=== PATIENT | male | born 1945 | race Caucasian/White ===

== ENCOUNTER 2021-10-22 08:57 | Outpatient (REF) | payer MEDICARE, SELFPAY | END 2021-10-22 08:58 | disposition home or self-care (01) | LOC: HO.LAB 08:57 | PROVIDERS: Visit Provider Internal Medicine | DX: Z20.822 Contact with and (suspected) exposure to COVID-19 (principal) | CPT/HCPCS: C9803; U0003; U0005 ==

== ENCOUNTER 2022-01-30 08:31 | Outpatient (REF) | payer MEDICARE, SELFPAY ==
--- NOTE | ~2022-01-30 | XR_ITS ---
EXAMINATION: XR KNEE STANDING BILATERAL XR LEFT KNEE 2 VIEWS CLINICAL INFORMATION: Pain in left knee, pain in right knee. COMPARISON: None. TECHNIQUE: Standing AP radiograph of both knees. Lateral and sunrise radiographs of the left knee. FINDINGS: There is severe medial lateral compartmental narrowing and degenerative joint space remodeling on the left with lateral subluxation of the tibia in relation to the femur. There is marginal joint osteophyte formation. On sunrise view, there is osteophyte formation along the articular surface of the patella. There is a moderate joint effusion. There is vascular calcification posterior to the knee. The right knee is visualized only on the standing radiograph and there is severe medial and rufcrxvm-mn-dtmstj narrowing of the lateral compartment with lateral subluxation of the tibia in relation to the femur. XR/XR knee standing BI IMPRESSION: Severe tricompartmental degenerative changes of the left knee with osteophyte formation and moderate joint effusion. Zxieufbk-nt-bfyhln degenerative changes/joint space narrowing of the right knee.
--- NOTE | ~2022-01-30 | XR_ITS ---
EXAMINATION: XR KNEE STANDING BILATERAL XR LEFT KNEE 2 VIEWS CLINICAL INFORMATION: Pain in left knee, pain in right knee. COMPARISON: None. TECHNIQUE: Standing AP radiograph of both knees. Lateral and sunrise radiographs of the left knee. FINDINGS: There is severe medial lateral compartmental narrowing and degenerative joint space remodeling on the left with lateral subluxation of the tibia in relation to the femur. There is marginal joint osteophyte formation. On sunrise view, there is osteophyte formation along the articular surface of the patella. There is a moderate joint effusion. There is vascular calcification posterior to the knee. The right knee is visualized only on the standing radiograph and there is severe medial and rfeavnpi-ay-zxixxy narrowing of the lateral compartment with lateral subluxation of the tibia in relation to the femur. XR/XR knee LT 2V IMPRESSION: Severe tricompartmental degenerative changes of the left knee with osteophyte formation and moderate joint effusion. Fxxdvvun-mb-xcfonu degenerative changes/joint space narrowing of the right knee.
== END 2022-01-30 08:32 | disposition home or self-care (01) ==
LOC: HO.HOSX 08:31
PROVIDERS: Visit Provider Physician Assistant
DX: M25.561 Pain in right knee (principal); M25.562 Pain in left knee; M17.12 Unilateral primary osteoarthritis, left knee; I10 Essential (primary) hypertension; Z79.899 Other long term (current) drug therapy
CPT/HCPCS: 73560; 73565; 99202

== ENCOUNTER → 2022-04-14 09:32 | Outpatient (BNVA) | payer MEDICARE, SELFPAY | PROVIDERS: PCP Internal Medicine; Visit Provider Orthopaedic Surgery | DX: M17.12 Unilateral primary osteoarthritis, left knee (principal) | CPT/HCPCS: 99212 ==

== ENCOUNTER 2022-05-30 07:49 | Outpatient (RCR) | payer MEDICARE, OTHER, SELFPAY ==
--- NOTE | 2022-05-30 08:55 | MHC.PT.EP ---
[facility] [place] [facility] [place] [facility] [place] [facility] [address] Aidee Raymundo [address] [phone] F: [phone] F: [phone] F: [phone] F: [phone] Physical Therapy Plan of Care Date of Evaluation: Date of Surgery: Diagnosis: This is a 76 yo male presenting to skilled PT with a script for prehab for LT TKA on 06/24 Assessment: This is a 76 yo male presenting to skilled PT with a script for prehab for LT TKA on 06/24. Blaine reports left knee OA and ongoing pain for a few years now. He has a history of knee injections which offered some relief, however he stopped these several months ago in preparation for surgery. He will be undergoing TKR on 06/24. He reports that he cannot walk very long without pain (maybe 5 minutes), does not use a cane but admits that he should and has decreased tolerance for doing work around the house. Pain is located anterior, lateral/medial, as well as posterior. Described as achy and sharp. Patient is retired. Likes to mow his lawn. He lives in a 2 story house (but lives on the first with full bath and bedroom). He lives with his who can assist him as needed. He has 4 YOLY with single hand rail. He has a walker and cane. Assessment reveals pain that ranges up to a 5/10. He demos decreased ROM, decreased strength, impaired gait pattern, impaired joint mobility as well as gross functional decline with walking, standing, and functional activities around the house all that is expected prehab prior to TKR. He is a good candidate for skilled PT 2x/wk for 3wks. Frequency and Duration: The patient will be seen 2x/wk for 3wks Short Term Goals: I in HEP Improve knee flexion by 5 degs Demo good understanding of prehab and post surgery exceptions Demo understanding of gait and transfers s/p surgery Manager Of Enterprise Goals: No longitudinal float operator goals due to impending surgery Treatment Plan: Modalities to reduce pain, spasms and effusion. Manual therapy to restore motion and function. Therapeutic exercise to improve strength and flexibility. Neuromuscular re-education for posture and balance. Therapeutic activities to return to functional activities of daily living. Electronically signed by: Monica Funk PT Please sign and return to therapist. Thank you for your referral.
--- NOTE | 2022-07-07 14:39 | MHC.PT.DC ---
[facility] [place] Office [place] Office [place] Office [address] Aidee Raymundo [address] [phone] F: [phone] F: [phone] F: [phone] F: [phone] Physical Therapy Discharge Report Diagnosis: This is a 76 yo male presenting to skilled PT with a script for prehab for LT TKA on 06/24 Date of Surgery: Date of Evaluation: 05/30/22 Date of Discharge: 07/07/22 Treatments to Date: 1 Cancellations to Date: 0 No Shows to Date: 0 Discharge Status: Achieved Goals Independent with HEP Patient Elected to Stop Discharge Summary: This is a 76 yo male presenting to skilled PT with a script for prehab for LT TKA on 06/24. Blaine reports left knee OA and ongoing pain for a few years now. He has a history of knee injections which offered some relief, however he stopped these several months ago in preparation for surgery. He will be undergoing TKR on 06/24. He reports that he cannot walk very long without pain (maybe 5 minutes), does not use a cane but admits that he should and has decreased tolerance for doing work around the house. Pain is located anterior, lateral/medial, as well as posterior. Described as achy and sharp. Patient is retired. Likes to mow his lawn. He lives in a 2 story house (but lives on the first with full bath and bedroom). He lives with his who can assist him as needed. He has 4 YOLY with single hand rail. He has a walker and cane. Assessment reveals pain that ranges up to a 5/10. He demos decreased ROM, decreased strength, impaired gait pattern, impaired joint mobility as well as gross functional decline with walking, standing, and functional activities around the house all that is expected prehab prior to TKR. He is a good candidate for skilled PT 2x/wk for 3wks. Patient has choosen to do HEP on own until surgery Electronically signed by: Monica Funk, PT Please sign and return to therapist. Thank you for your referral.
== END 2022-07-07 14:40 | disposition home or self-care (01) ==
LOC: HO.PTCHIC 07:49
PROVIDERS: PCP Internal Medicine; Visit Provider Orthopaedic Surgery
DX: M17.12 Unilateral primary osteoarthritis, left knee (principal)
CPT/HCPCS: 97110; 97162; 97530

== ENCOUNTER → 2022-06-19 10:58 | Outpatient (BNVA) | payer MEDICARE, OTHER, SELFPAY | PROVIDERS: PCP Internal Medicine; Visit Provider Physician Assistant | DX: M17.12 Unilateral primary osteoarthritis, left knee (principal) | CPT/HCPCS: 99212 ==

== ENCOUNTER 2022-06-25 06:46 | Inpatient (IN) | payer MEDICARE, SELFPAY ==
[2022-06-18 12:10] VITALS: BP 107/58; PULSE 67; RESP 20; O2SAT 98; BMI 34.2
[2022-06-18 15:36] LABS: MRSA Nasal PCR NEGATIVE (Negative); SA Nasal PCR NEGATIVE (Negative)
--- NOTE | 2022-06-23 08:43 | HO.ANESPROP2 ---
Documented by User: Valentine Mckeon NP 06/23/22 09:06 HPI - Anesthesia Eval Consult details Narrative: 76yo M for Left Knee Replacement Total PCP cleared Cardiac cleared PMFSH Active Problems Active Problems: All Active Problems (Updated 06/18/22 @ 12:24 by Linda Anand RN) Osteoarthritis of left knee (Acute) Past Medical History Medical History Arrhythmia Arthritis COVID-19 vaccine series completed Elevated cholesterol Glaucoma Hypertension Skin cancer Surgical History Surgical History H/O colonoscopy Social History Social History Are you a primary vp care management to a significant other at home: No Do you presently have visiting nurse or other home services: No Patient Tobacco Use Status: Never used Tobacco Use of substances other than those prescribed or required for medical reasons: No Currently Displaying Signs/Symptoms of Drug Intoxication Withdrawal: No Have you been hit, kicked, punched, or otherwise hurt by someone within the past year? If so, by whom?: No Are you DNR?: Yes Advance Directives Information Provided: Yes (as above noted) Advance Directives on File: No Recently lost weight without trying: No Eating poorly because of decreased appetite: No Nutrition Risks: Surgical patient >75years Poor oral hygiene: No (adentulous) Current occupational status: retired Meds Allergies Allergy/AdvReac Type Severity Reaction Status Date / Time No Known Allergies Allergy Verified 06/25/22 06:59 Home Medications Medication Instructions Recorded Confirmed Last Taken Type diosmin complex no.1 630 mg tablet 1 tab PO DAILY 01/30/22 06/17/22 Unknown History (Vasculera) emollient combination no.32 1 appl topical DAILY 01/30/22 06/17/22 Unknown History (EpiCeram topical emulsion, extended release) hydrochlorothiazide 25 mg tablet 25 mg PO DAILY 01/30/22 06/17/22 Unknown History lisinopril 10 mg tablet 10 mg PO DAILY 01/30/22 06/17/22 Unknown History triamcinolone acetonide 0.1 % 1 appl topical BID-TID 01/30/22 06/18/22 Unknown History topical cream metoprolol tartrate 25 mg tablet 12.5 mg PO BID 04/14/22 06/17/22 06/25/22 05:00 History acetaminophen 325 mg tablet 650 mg PO Q4H PRN Pain 06/17/22 06/17/22 Unknown History atorvastatin 40 mg tablet 40 mg PO BEDTIME 06/17/22 06/17/22 Unknown History multivitamin 1 tab PO DAILY 06/17/22 06/17/22 Unknown History dorzolamide 2 % eye drops 1 drp ophthalmic (eye) BID 06/25/22 06/25/22 06/25/22 05:00 History latanoprost 0.005 % eye drops 1 drp ophthalmic (eye) BEDTIME 06/25/22 06/25/22 Unknown History Exam Exam Date and Time: June 23, 2022 0843 Height,Weight and Vital Signs: Height 5 ft 9 in Weight 105.233 kg Last Vital Signs Pulse 67 06/18/22 12:10 Resp 20 06/18/22 12:10 BP 107/58 L 06/18/22 12:10 Pulse Ox 98 06/18/22 12:10 O2 Del Method 06/18/22 12:10 Pertinent Lab Results Pertinent Lab Results: Laboratory Tests 06/18/22 06/18/22 12:30 13:10 Nasal Screen MRSA (PCR) NEGATIVE Nasal S. aureus Screen NEGATIVE Nasal MRSA/S.aureus Interp SEE NOTE Blood Type O Negative Antibody Screen NEGATIVE Labs from outside facility: CBC wnl, BMP wnl Narrative Narrative: EKG 05/2022 ST @ 109 Borderline low volt ECHO 03/2022 1. Nml LV size and systolic function. Nml regional wall motion. Asymmetric septal hypertrophy. Nml LV diastolic function. LVEF 55-60% 2. No signif valve abn Assessment and Plan Assessment Anesthesia Assessment: Chart Reviewed Documented by User: Dann Soriano MD 06/25/22 15:42 [facility] Past Medical History Medical History Arrhythmia Arthritis COVID-19 vaccine series completed Elevated cholesterol Glaucoma Hypertension Skin cancer Family History Family history of problems with anesthesia: No Surgical History Surgical History H/O colonoscopy History of Problems with Anesthesia: No Social History Social History Are you a primary vp care management to a significant other at home: No Do you presently have visiting nurse or other home services: No Patient Tobacco Use Status: Never used Tobacco Use of substances other than those prescribed or required for medical reasons: No Currently Displaying Signs/Symptoms of Drug Intoxication Withdrawal: No Have you been hit, kicked, punched, or otherwise hurt by someone within the past year? If so, by whom?: No Are you DNR?: Yes Advance Directives Information Provided: Yes (as above noted) Advance Directives on File: No Recently lost weight without trying: No Eating poorly because of decreased appetite: No Nutrition Risks: Surgical patient >75years Poor oral hygiene: No (adentulous) Current occupational status: retired [employer] Allergies Allergy/AdvReac Type Severity Reaction Status Date / Time No Known Allergies Allergy Verified 06/25/22 06:59 Home Medications Medication Instructions Recorded Confirmed Last Taken Type diosmin complex no.1 630 mg tablet 1 tab PO DAILY 01/30/22 06/17/22 Unknown History (Vasculera) emollient combination no.32 1 appl topical DAILY 01/30/22 06/17/22 Unknown History (EpiCeram topical emulsion, extended release) hydrochlorothiazide 25 mg tablet 25 mg PO DAILY 01/30/22 06/17/22 Unknown History lisinopril 10 mg tablet 10 mg PO DAILY 01/30/22 06/17/22 Unknown History triamcinolone acetonide 0.1 % 1 appl topical BID-TID 01/30/22 06/18/22 Unknown History topical cream metoprolol tartrate 25 mg tablet 12.5 mg PO BID 04/14/22 06/17/22 06/25/22 05:00 History acetaminophen 325 mg tablet 650 mg PO Q4H PRN Pain 06/17/22 06/17/22 Unknown History atorvastatin 40 mg tablet 40 mg PO BEDTIME 06/17/22 06/17/22 Unknown History multivitamin 1 tab PO DAILY 06/17/22 06/17/22 Unknown History dorzolamide 2 % eye drops 1 drp ophthalmic (eye) BID 06/25/22 06/25/22 06/25/22 05:00 History latanoprost 0.005 % eye drops 1 drp ophthalmic (eye) BEDTIME 06/25/22 06/25/22 Unknown History Exam Airway Mallampati Class: III TM Dist: >3cm Neck ROM: Full Loose/Missing/Broken Teeth: Yes Heart: S1,S2 Lungs: b/l breath sounds Assessment and Plan Assessment Anesthesia Assessment: Anesthesia Plan Discussed Final Anesthetic Review Family History of Problems with Anesthesia: No History of Problems with Anesthesia: No NPO: Yes ASA Class: III Final Preanesthetic Review: Meds/Allgs Chart Reviewed, Consent Obtained/Reviewed and Anes Risks/Benef Reviewed Patient Risk: Intermediate Procedure Risk: Intermediate Anesthetic Plan Anesthetic Plan: Spinal and Regional Block Disposition: Standard PACU
[2022-06-25] VITALS (12 sets, daily range): BP systolic 101–144; BP diastolic 57–72; PULSE 55–97; RESP 12–20; TEMP 36.1–37; O2SAT 92–100
--- NOTE | ~2022-06-25 | XR_ITS ---
EXAMINATION: XR KNEE, LEFT CLINICAL INFORMATION: Status post left total knee arthroplasty COMPARISON: January 30, 2022 TECHNIQUE: AP and lateral views of the left knee. FINDINGS: Patient status post left total knee arthroplasty with prosthetic components appearing in good position. No acute fracture or dislocation is evident. Some gas within the soft tissues from recent surgery noted. There appears to be a left knee effusion. Staple line is present. XR/XR knee LT 2V IMPRESSION: Satisfactory postoperative appearance of left total knee arthroplasty.
[2022-06-25 07:09] LABS: Hematocrit 43.3 % (42.0-52.0); Hemoglobin 14.6 g/dl (14.0-18.0)
--- NOTE | 2022-06-25 07:38 | MHC.SHP ---
Pre-Procedural Eval Section A Date of Service: 06/25/22 The patient is an INPATIENT: No Changes since office visit: Yes Patient answered all questions; No Cold of Flu in the past 2 weeks, No New Medical Problems and No Changes in Medication The History & Physical has been completed within 30 days and I have reviewed it.: Yes Section B Chief Complaint: LT TKA Allergies: Allergies Allergy/AdvReac Type Severity Reaction Status Date / Time No Known Allergies Allergy Verified 06/25/22 06:59 Plan I have reviewed the history and physical and performed a pertinent physical examination on my patient. No changes have occurred unless specified.
[2022-06-25 07:42] LABS: COVID-19 Test Negative (Negative)
--- NOTE | 2022-06-25 07:47 | PHA.MEDREC ---
Pharmacy Consult ? Medication Reconciliation RN has completed the medication reconciliation. Pharmacy reviewed
[2022-06-25] MEDS: Lactated Ringers 1,000 ML 100 ML IVCONT ×3 (08:00→23:25)
--- NOTE | 2022-06-25 10:34 | PM.OP ---
Brief Operative Note Date of Service: 06/25/22 Pre-op diagnosis: left knee OA Post-op diagnosis: same Procedure: Left TKA Implants: [employer] Triathalon Posterior stabilized cemented 03/28/38 Surgeon: Moy Gandhi MD Anesthesia: GETA and regional Was an Wind Operations Manager used for this Procedure?: Yes Wind Operations Manager: Oriana Mo Estimated blood loss (mL): 200 IV fluids (mL): 1,000 Pathology: other Condition: stable Disposition: PACU
--- NOTE | 2022-06-25 10:41 | P.OP_ITS ---
Operative Note Operative Note Date of Service: 06/25/22 Narrative: Date of Service: 06/25/22 Pre-op diagnosis: left knee OA Post-op diagnosis: same Procedure: Left TKA Implants: [employer] Triathalon Posterior stabilized cemented 03/28/a/11TS Surgeon: Moy Gandhi MD Anesthesia: GETA and regional Was an Middle School Technology Teacher used for this Procedure?: Yes Middle School Technology Teacher: Oriana Mo Estimated blood loss (mL): 200 IV fluids (mL): 1,000 Pathology: other Condition: stable Disposition: PACU Procedure in detail: The patient was brought to the operating room and prepped and draped in standard sterile fashion. A time-out was called to identify proper site proper procedure proper surgeon and IV antibiotics were administered. 1 g of IV tranexamic acid was administered. I began by making a midline incision to the retinaculum and performed a medial parapatellar arthrotomy. The patella was translated laterally and the knee was flexed up. This was a valgus knee with severe medial tibial plateau bone loss and tric-comparmetnal deformity. There was a 10deg flexion contracture. I performed a small medial peel and resected the infrapatellar fat pad. Myrtle's line was then used to drill my intramedullary femoral guide and my distal femur cut of 12 mm was made in 5 degrees of valgus while protecting the soft tissues. I then measured a # 5 femur and placed my cutting guide and made my anterior posterior and chamfer cuts protecting the soft tissues at all times. I then made my box but removing the PCL. Once I was satisfied with my cuts I turned my attention to the tibia. I removed the meniscus medially and laterally and , using an external cutting guide, in line with the tibial crest and the third ray, I made my distal tibial cut in 0 deg slope of while protecting the PCL the posterior soft tissues at all times. An extension block was used to confirm appropriate amount of bony resection. I then sized a #6 tibia and once I was satisfied that there was complete tibial coverage I placed my trial and with the trial femur in place took the knee through range of motion. I was satisfied with the extension and flexion as well as the stability at 0, 30 and 90 degrees. I then turned my attention to the patella where I removed 1 cm from the undersurface of the patella and then trialed a 38a patellar button. Again the knee was taken through range of motion I was satisfied with the tracking. A femoral bone plug was placed and the knee was irrigated copiously. I thencemented the patella, tibia and femur in standard fashion while applying axial compression. I trialed different inserts until I selected a #11TS insert. The final insert was placed and a 3 minutes iodine soak with local TXA was performed. The knee was then closed with a running Quill suture, a 3 0 Vicryl and renetta on the skin. Patient was then placed in sterile dressing and brought to recovery room in stable condition there were no known complications.
[2022-06-25] MEDS: oxyCODONE HCl Immed Release 5 MG TABLET PO (13:29)
[2022-06-25] MEDS: HYDROmorphone HCl 0.5 MG/0.5 ML SYRINGE 0.25 MG IVPUSH (13:48)
[2022-06-25] MEDS: Acetaminophen 325 MG TABLET 650 MG PO ×2 (13:53→20:43)
[2022-06-25] MEDS: ceFAZolin Sodium/Dextrose,Iso 2 GM/50 ML PIGGYBACK IV (15:07)
[2022-06-25] MEDS: HYDROmorphone HCl 0.5 MG/0.5 ML SYRINGE IVPUSH (16:49)
[2022-06-25] MEDS: oxyCODONE HCl ER 10 MG TAB.ER.12H PO (20:40)
[2022-06-25] MEDS: Docusate Sodium 100 MG CAPSULE PO (20:41)
[2022-06-25] MEDS: Metoprolol Tartrate 12.5 MG HALFTAB PO (20:41)
[2022-06-25] MEDS: Celecoxib 200 MG CAPSULE PO (20:41)
[2022-06-25] MEDS: Atorvastatin Calcium 40 MG TABLET PO (20:41)
[2022-06-25] MEDS: oxyCODONE HCl Immed Release 5 MG TABLET 10 MG PO (20:44)
[2022-06-25] MEDS: Dorzolamide HCl 2 % Ophth Sol 10 ML DRPBTL 1 DROP EYE-BOTH (20:46)
[2022-06-25] MEDS: Latanoprost 0.005 % Ophth Sol 2.5 ML DROPS 1 DROP EYE-BOTH (20:46)
[2022-06-26] VITALS (8 sets, daily range): BP systolic 87–116; BP diastolic 50–60; PULSE 72–121; RESP 16–18; TEMP 36.2–37.2; O2SAT 91–97
[2022-06-26] MEDS: oxyCODONE HCl Immed Release 5 MG TABLET 10 MG PO ×3 (03:32→20:30)
[2022-06-26 05:56] LABS: MANUAL DIFF FLAG NO
[2022-06-26 06:00] LABS: Basophils Percent Auto 0.3 % (0-2); Eosinophils Absolute Auto 0.1 X10*3/uL (0.0-0.4); Eosinophils Percent Auto 0.7 % (0-4); Hematocrit 35.2 % (42.0-52.0); Hemoglobin 11.9 g/dl (14.0-18.0); Imm Gran Abs Auto 0.07 X10*3/uL (0.00-0.03); Imm Gran Pct Auto 0.6 % (0.0-0.4); Lymphocytes Absolute Auto 1.3 X10*3/uL (1.2-4.9); Lymphocytes Percent Auto 11.1 % (20-40); Mean Corpuscular HGB Conc 33.8 g/dl (31.0-36.0); Mean Corpuscular Hemoglobin 29.5 pg (27.0-33.0); Mean Corpuscular Volume 87.1 fL (80.0-98.0); Mean Platelet Volume 10.1 fL (9.4-12.4); Monocytes Absolute Auto 1.3 X10*3/uL (0.1-1.2); Monocytes Percent Auto 11.7 % (2-11); Neutrophils Absolute Auto 8.6 x10*3/uL (2.0-8.3); Neutrophils Percent Auto 75.6 % (45-73); Platelet Count 194 X10*3/uL (160-400); Red Blood Count 4.04 X10*6/uL (4.60-5.80); Red Cell Distribution Width 13.7 % (11.0-16.0); White Blood Count 11.3 X10*3/uL (4.8-10.8)
[2022-06-26 06:25] LABS: Anion Gap 10 (12-20); Blood Urea Nitrogen 15 mg/dL (9-16); Calcium 8.4 mg/dL (8.4-10.2); Carbon Dioxide 27 mmol/L (22-29); Chloride 105 mmol/L (96-108); Estimated Glomerular Filt Rate > 60; Glucose Fasting 127 mg/dL (60-99); Potassium 4.3 mmol/L (3.3-5.1); Sodium 138 mmol/L (135-145)
--- NOTE | 2022-06-26 06:52 | HO.POSTANES ---
Post Anesthesia Evaluation Post Anesthesia Evaluation Vital Signs: Vital Signs Temp Pulse Resp BP Pulse Ox O2 Del Method 06/26/22 03:25 97.3 F 85 17 109/60 91 L Room Air 06/25/22 23:26 98.6 F 97 16 101/65 94 Room Air 06/25/22 19:13 98.5 F 93 18 135/68 100 Room Air Anesthesia: Spinal and Nerve Block Mental Status: Awake Pain Control: Satisfactory (difficulty controlling pain) Nausea/Vomiting: None Hydration: Adequate Anesthesia-Related Issues: No Anes. Related Issues
[2022-06-26] MEDS: Metoprolol Tartrate 12.5 MG HALFTAB PO (07:49)
[2022-06-26] MEDS: Aspirin 325 MG TABLET PO ×2 (07:49→20:29)
[2022-06-26] MEDS: hydroCHLOROthiazide 25 MG TABLET PO (07:49)
[2022-06-26] MEDS: Celecoxib 200 MG CAPSULE PO ×2 (07:49→20:29)
[2022-06-26] MEDS: lisinopriL 10 MG TABLET PO (07:50)
[2022-06-26] MEDS: oxyCODONE HCl ER 10 MG TAB.ER.12H PO ×2 (07:50→20:30)
[2022-06-26] MEDS: Multivitamin TABLET 1 TAB PO (07:50)
[2022-06-26] MEDS: Docusate Sodium 100 MG CAPSULE PO ×2 (07:51→20:29)
[2022-06-26] MEDS: Dorzolamide HCl 2 % Ophth Sol 10 ML DRPBTL 1 DROP EYE-BOTH ×2 (07:52→20:31)
--- NOTE | 2022-06-26 08:47 | MHC.CM.PN ---
IMM addressed, original given to patient and copy filed in chart. Patient reports he lives with Kay, his significant other. She will transport him home. He has a cane, walker, and toilet riser at home; does not receive any home services. [facility] is a and [facility] [place], [facility] (MD Yanira). He is also connected to [facility] services. Community PCP is Harriett Garcia. He is Covid vax'd x3 (MRNA), and HCP on file. D/C Plan: Home with new VNA per PT recommendation
--- NOTE | 2022-06-26 08:52 | PM.PNORT ---
Subjective Subjective Date of Service: 06/26/22 Interval history: POD1 s/p LTKA. Pain overnight. Meds were adjusted. No additional overnight events. No additional complaints. Physical Exam Vital Signs: Vital Signs: Last Vital Signs Temp 97.2 F 06/26/22 07:28 Pulse 92 06/26/22 07:28 Resp 18 06/26/22 07:28 BP 105/50 L 06/26/22 07:28 Pulse Ox 97 06/26/22 07:28 O2 Del Method 06/26/22 07:28 O2 Flow Rate 6 06/25/22 10:39 BMI result Body Mass Index 34.2 Const: General: cooperative, healthy appearing and no acute distress Resp: Effort & Inspection: normal respiratory effort and able to speak in complete sentences Cardio: Rate: regular rate Peripheral pulses: Peripheral pulses 2+ throughout GI: Palpation (GI): Soft to palpation Skin: Lesions: no lesions Rashes: no rashes Extrem: Other: Left knee Aquacel is clean. dry and intact. NVI. Procedures Date of Service Date of Service: 06/26/22 Progress Note: A&P Assessment and plan (1) Status post total knee replacement, left: Status: Acute Assessment and Plan: Continue pain mgmnt Begin ASA for dvt ppx begin PT for LTKA Dispo planning-Pending PT eval, pain mgmnt Time Spent With Patient Time: Total time spent is greater than 50% in coordination of care (as documented) at patient's floor/unit and/or counseling patient: Quality Stroke Does the patient have a stroke diagnosis?: No VTE Prior VTE?: No VTE Risk Level:: Medical - moderate - high VTE Device Contraindication: N/A - Device Ordered VTE Drug Contraindication: N/A - Med Ordered
[2022-06-26] MEDS: 0.9 % Sodium Chloride 1,000 ML 999 ML IV (11:52)
--- NOTE | 2022-06-26 11:59 | P.CONIM_ITS ---
History of Present Illness Data of Consult Service Date: 06/26/22 Primary Care Provider: Harriett Garcia MD [facility] Reason for consult: htn 76M admitted for elective left total knee arthroplasty. patient has history of HTN on lisinopirl, hctz, metoprolol. and hld on lipitor. postoperatively, feeling well, was hyotnesive to 87/50, but asymptomatic. denies chest pain, dizzyness, sob, fever, chills. Review of Systems Review of Systems: Constitutional: Denies fever, denies Chills Eyes: denies blurry vision ENT: denies sore throat CVS: denies chest pain Respiratory: Denies dyspnea GI: no abdominal pain : denies dysuria MSK: denies neck pain Skin: denies rash Neuro: denies specific motor weakness Psych: denies suicidal ideation Endocrine: denies heat/cold intolerance Hematologic: denies easy bleeding Allergy: denies hives [facility] Medical History Arrhythmia Arthritis COVID-19 vaccine series completed Elevated cholesterol Glaucoma Hypertension Skin cancer Family History (Updated 06/26/22 @ 11:59 by Bryson Serna MD) Mother CAD (coronary artery disease) Surgical History (Updated 06/26/22 @ 08:54 by Oriana Mo PA-C) H/O colonoscopy Social History Are you a primary director of medicare to a significant other at home: No Do you presently have visiting nurse or other home services: No Patient Tobacco Use Status: Never used Tobacco service: Yes Current occupational status: retired [employer] Allergies Allergy/AdvReac Type Severity Reaction Status Date / Time No Known Allergies Allergy Verified 06/25/22 06:59 Active Medications: Current Medications Acetaminophen (Acetaminophen 325 Mg Tablet) 650 mg PO Q6H PRN PRN Reason: Pain, Mild (Pain Scale 1-3) Last Admin: 06/25/22 20:43 Dose: 650 mg Aspirin (Aspirin 325 Mg Tablet) 325 mg PO BID [facility] Last Admin: 06/26/22 07:49 Dose: 325 mg Atorvastatin Calcium (Atorvastatin Calcium 40 Mg Tablet) 40 mg PO BEDTIME JAKOB Last Admin: 06/25/22 20:41 Dose: 40 mg Celecoxib (Celecoxib 200 Mg Capsule) 200 mg PO BID [facility] Last Admin: 06/26/22 07:49 Dose: 200 mg Docusate Sodium (Docusate Sodium 100 Mg Capsule) 100 mg PO BID [facility] Last Admin: 06/26/22 07:51 Dose: 100 mg Dorzolamide HCl (Dorzolamide Hcl 2 % Ophth Bindu 10 Ml Drpbtl) 1 drop EYE-BOTH BID [facility] Last Admin: 06/26/22 07:52 Dose: 1 drop Hydrochlorothiazide (Hydrochlorothiazide 25 Mg Tablet) 25 mg PO DAILY [facility]; Protocol Last Admin: 06/26/22 07:49 Dose: 25 mg Hydromorphone HCl (Hydromorphone Hcl 0.5 Mg/0.5 Ml Syringe) 0.5 mg IVPUSH Q3H PRN; Protocol PRN Reason: Pain, Severe (Pain Scale 7-10) Last Admin: 06/25/22 16:49 Dose: 0.5 mg Sodium Chloride (Ns) 1,000 mls @ 999 mls/hr IV .Q1H1M [facility] Stop: 06/26/22 12:45 Last Admin: 06/26/22 11:52 Dose: 999 mls/hr Latanoprost (Latanoprost 0.005 % Ophth Bindu 2.5 Ml Drops) 1 drop EYE-BOTH BEDTI ME [facility] Last Admin: 06/25/22 20:46 Dose: 1 drop Lisinopril (Lisinopril 10 Mg Tablet) 10 mg PO DAILY [facility]; Protocol Last Admin: 06/26/22 07:50 Dose: 10 mg Metoprolol Tartrate (Metoprolol Tartrate 12.5 Mg Halftab) 12.5 mg PO BID [facility]; Protocol Last Admin: 06/26/22 07:49 Dose: 12.5 mg Multi-Ingred Cream/Lotion/Oil/Oint (Mineral Oil/Petrolatum,White 106 Gm Tube) 1 appl TOPICAL DAILY [facility] Last Admin: 06/26/22 07:57 Dose: Not Given Multivitamins/Vitamin C (Multivitamin Tablet) 1 tab PO DAILY [facility] Last Admin: 06/26/22 07:50 Dose: 1 tab Oxycodone HCl (Oxycodone Hcl Er 10 Mg Tab.Er.12h) 10 mg PO BID [facility] Last Admin: 06/26/22 07:50 Dose: 10 mg Oxycodone HCl (Oxycodone Hcl Immed Release 5 Mg Tablet) 10 mg PO Q4H PRN PRN Reason: Pain, Moderate (Pain Scale 4-6 Last Admin: 06/26/22 07:51 Dose: 10 mg Sodium Chloride (0.9 % Sodium Chloride Flush 3 Ml Syringe) [address] [facility] Last Admin: 06/26/22 07:55 Dose: Not Given Triamcinolone Acetonide (Triamcinolone Acet 0.1 % Cream 15 Gm Tube) 1 appl TOPICAL TID [facility]; Protocol Last Admin: 06/26/22 11:35 Dose: Not Given Home Medications Medication Instructions Recorded Confirmed Last Taken Type diosmin complex no.1 630 mg tablet 1 tab PO DAILY 01/30/22 06/17/22 Unknown His tory (Vasculera) emollient combination no.32 1 appl topical DAILY 01/30/22 06/17/22 Unknown History (EpiCeram topical emulsion, extended release) hydrochlorothiazide 25 mg tablet 25 mg PO DAILY 01/30/22 06/17/22 Unknown History lisinopril 10 mg tablet 10 mg PO DAILY 01/30/22 06/17/22 Unknown History triamcinolone acetonide 0.1 % 1 appl topical BID-TID 01/30/22 06/18/22 Unknown History topical cream metoprolol tartrate 25 mg tablet 12.5 mg PO BID 04/14/22 06/17/22 06/25/22 05:00 History acetaminophen 325 mg tablet 650 mg PO Q4H PRN Pain 06/17/22 06/17/22 Unknown History atorvastatin 40 mg tablet 40 mg PO BEDTIME 06/17/22 06/17/22 Unknown History multivitamin 1 tab PO DAILY 06/17/22 06/17/22 Unknown History dorzolamide 2 % eye drops 1 drp ophthalmic (eye) BID 06/25/22 06/25/22 06/25/22 05:00 History latanoprost 0.005 % eye drops 1 drp ophthalmic (eye) BEDTIME 06/25/22 06/25/22 Unknown History Physical Exam Vital Signs and Narrative: Vital Signs: Last Vital Signs Temp 98.7 F 06/26/22 11:18 Pulse 85 06/26/22 11:18 Resp 16 06/26/22 11:18 BP 87/50 L 06/26/22 11:18 Pulse Ox 96 06/26/22 11:18 O2 Del Method 06/26/22 11:18 O2 Flow Rate 6 06/25/22 10:39 BMI result Body Mass Index 34.2 General: no acute distress HEENT: atraumatic Neck: normal to visual inspection CVS: S1, S2, RRR Resp: CTA bilateral Chest: non tender GI: soft, non tender, non distended : no CVA tenderness Skin: no rashes Extremities: no edema Neuro: Oriented X3, grossly intact Psych: cooperative Results Labs CBC and Chem 7: 06/26/22 05:24 06/26/22 05:24 Labs: Laboratory Results - last 24 hr 06/26/22 06/26/22 05:24 05:24 MCV 87.1 MCH 29.5 MCHC 33.8 RDW 13.7 Plt Count 194 MPV 10.1 Immature Gran % (Auto) 0.6 H Neut % (Auto) 75.6 H Lymph % (Auto) 11.1 L [place] % (Auto) 11.7 H Eos % (Auto) 0.7 Baso % (Auto) 0.3 Lymph # (Auto) 1.3 [place] # (Auto) 1.3 H Eos # (Auto) 0.1 Baso # (Auto) 0.0 Abs Immat Gran (auto) 0.07 H Absolute Neuts (auto) 8.6 H Absolute Nucleated RBC 0.000 Nucleated RBC % (auto) 0.0 Anion Gap 10 L Estim Creat Clear Calc 99.0 Estimated GFR > 60 Fasting Glucose 127 H Calcium 8.4 Imaging Radiologist's Impressions: Impressions Knee X-Ray 06/25/22 11:15 IMPRESSION: Satisfactory postoperative appearance of left total knee arthroplasty. Assessment and Plan (1) Status post total knee replacement, left: Status: Acute Plan 76M admitted for elective left tka hypertension with postoperative hypotension asymptomatic hold antihypertensives for now, will bolus 1L, monitor hld statin obesity weight loss recommended dvt prohpylaxis - asa bid full code
--- NOTE | 2022-06-26 13:31 | PC.NURSE ---
11:20 Pt BP was 87/50, manual. Hospitalist notified, and at bed side. New orders of 1000ml NS Bolus given. BP rechecked at 1300. BP was 100/50, manually.
[2022-06-26] MEDS: 0.9 % Sodium Chloride Flush 3 ML SYRINGE IVFLUSH ×2 (17:12→23:58)
[2022-06-26] MEDS: Atorvastatin Calcium 40 MG TABLET PO (20:29)
[2022-06-26] MEDS: Latanoprost 0.005 % Ophth Sol 2.5 ML DROPS 1 DROP EYE-BOTH (20:31)
[2022-06-27 00:05] VITALS: PULSE 84
[2022-06-27 03:22] VITALS: BP 96/50; PULSE 89; RESP 17; TEMP 36.7; O2SAT 96
[2022-06-27 06:48] LABS: Basophils Absolute Auto 0.1 X10*3/uL (0.0-0.2); Basophils Percent Auto 0.4 % (0-2); Eosinophils Absolute Auto 0.2 X10*3/uL (0.0-0.4); Eosinophils Percent Auto 1.4 % (0-4); Hematocrit 32.8 % (42.0-52.0); Hemoglobin 10.9 g/dl (14.0-18.0); Imm Gran Abs Auto 0.08 X10*3/uL (0.00-0.03); Imm Gran Pct Auto 0.7 % (0.0-0.4); Lymphocytes Absolute Auto 1.2 X10*3/uL (1.2-4.9); Lymphocytes Percent Auto 10.2 % (20-40); MANUAL DIFF FLAG SCAN; Mean Corpuscular HGB Conc 33.2 g/dl (31.0-36.0); Mean Corpuscular Hemoglobin 29.3 pg (27.0-33.0); Mean Corpuscular Volume 88.2 fL (80.0-98.0); Mean Platelet Volume 10.6 fL (9.4-12.4); Monocytes Absolute Auto 1.6 X10*3/uL (0.1-1.2); Monocytes Percent Auto 13.4 % (2-11); Neutrophils Absolute Auto 8.8 x10*3/uL (2.0-8.3); Neutrophils Percent Auto 73.9 % (45-73); Platelet Count 191 X10*3/uL (160-400); Red Blood Count 3.72 X10*6/uL (4.60-5.80); Red Cell Distribution Width 14.1 % (11.0-16.0); SCAN SMEAR FLAG 1; White Blood Count 11.9 X10*3/uL (4.8-10.8)
[2022-06-27 07:08] LABS: Anion Gap 14 (12-20); Blood Urea Nitrogen 22 mg/dL (9-16); Carbon Dioxide 25 mmol/L (22-29); Chloride 102 mmol/L (96-108); Creatinine Clr Calc Pharmacy 73.3; Estimated Glomerular Filt Rate > 60; Glucose Fasting 122 mg/dL (60-99); Potassium 3.5 mmol/L (3.3-5.1); Sodium 137 mmol/L (135-145)
[2022-06-27 07:13] LABS: SLIDE REVIEW VERIFIED
[2022-06-27 08:00] VITALS: BP 90/55; PULSE 98; RESP 16; TEMP 36.8; O2SAT 96
--- NOTE | 2022-06-27 08:17 | P.DS_ITS ---
DS: Providers Provider Date of Service: 06/27/22 Date of admission: 06/25/22 06:46 Primary care physician: Harriett Garcia MD Consults: 06/25/22 13:00 Consult to Hospitalist Routine Consulting Provider: Hospitalist Reason For Exam: routine medical management DS: Diagnosis Discharge Diagnosis (1) Status post total knee replacement, left: Status: Acute DS: Summary Hospital Course Hospital Course: The patient underwent a successful left total knee arthroplasty, was transferred to PACU and then to the floor to recover. During their stay, their vitals were stable, afebrile at 98.1. Labs were unremarkable, H/H 11.9/10.9 . POD 1 ()he was started on ASA for DVT ppx, they also received services twice a day. Prior to discharge, their dressing was change, incision clean dry and intact, new Aquacel dressing applied and the plan was to be discharged home with vna svs. Time Spent with Patient Time attestation: Total time spent providing and/or coordinating discharge services: Discharge coordination time: Less than 30 minutes Quality: Safe Use of Opioids Does Pt have an Active Cancer Diagnosis on the Problem List?: No Quality: Stroke Does the patient have a stroke diagnosis?: No Physical Exam Vital Signs: Vital Signs: Last Vital Signs Temp 98.1 F 06/27/22 03:22 Pulse 89 06/27/22 03:22 Resp 17 06/27/22 03:22 BP 96/50 L 06/27/22 03:22 Pulse Ox 96 06/27/22 03:22 O2 Del Method 06/27/22 03:22 O2 Flow Rate 6 06/25/22 10:39 BMI result Body Mass Index 34.2 Const: General: cooperative, healthy appearing and no acute distress Resp: Effort & Inspection: normal respiratory effort and able to speak in complete sentences Cardio: Rate: regular rate Peripheral pulses: Peripheral pulses 2+ throughout GI: Palpation (GI): Soft to palpation Skin: General skin exam: no rashes or lesions noted Extrem: Other: incision clean dry and intact. Sera intact. No erythema or joint effusion. Calf supple nontender. Neurovascularly intact. DS: Data Data Completed and Pending Pending studies at discharge: Pending at discharge 06/25/22 09:53 Surgical [PTH] Routine Labs on day of discharge: Laboratory Results - last 24 hr 06/27/22 06/27/22 05:18 05:18 WBC 11.9 H RBC 3.72 L Hgb 10.9 L Hct 32.8 L MCV 88.2 MCH 29.3 MCHC 33.2 RDW 14.1 Plt Count 191 MPV 10.6 Immature Gran % (Auto) 0.7 H Neut % (Auto) 73.9 H Lymph % (Auto) 10.2 L [place] % (Auto) 13.4 H Eos % (Auto) 1.4 Baso % (Auto) 0.4 Lymph # (Auto) 1.2 [place] # (Auto) 1.6 H Eos # (Auto) 0.2 Baso # (Auto) 0.1 Abs Immat Gran (auto) 0.08 H Absolute Neuts (auto) 8.8 H Absolute Nucleated RBC 0.000 Nucleated RBC % (auto) 0.0 Smear Tech's Comments VERIFIED Sodium 137 Potassium 3.5 Chloride 102 Carbon Dioxide 25 Anion Gap 14 BUN 22 H Creatinine 1.04 Estim Creat Clear Calc 73.3 Estimated GFR > 60 Fasting Glucose 122 H Calcium 8.0 L Discharge Plan Discharge Patient Disposition: Home Health Service Discharge Diagnosis: LT TKA Referrals: Oriana Mo PA-C [Physician Director [employer] Communications] - 2 Weeks (07/10/22 2:00 [facility] Oriana Mo PA-C) Discharge Medications: New docusate sodium 100 mg Capsule 100 mg PO BID 14 Days Qty: 28 0RF celecoxib 200 mg Capsule 200 mg PO BID 30 Days Qty: 60 0RF aspirin 325 mg Tablet 325 mg PO BID 42 Days Qty: 84 0RF oxycodone 5 mg Tablet 5 mg PO Q4H PRN (Reason: Pain, Moderate (Pain Scale 4-6) 7 Days Qty: 42 0RF Rx Instructions: Partial Fill upon patient request. acetaminophen 325 mg Tablet 650 mg PO Q6H PRN (Reason: Pain, Mild (Pain Scale 1-3)) 30 Days Qty: 240 0RF Continued multivitamin Tablet 1 tab PO DAILY atorvastatin 40 mg Tablet 40 mg PO BEDTIME latanoprost 0.005 % drops 1 drp ophthalmic (eye) BEDTIME dorzolamide 2 % drops 1 drp ophthalmic (eye) BID metoprolol tartrate 25 mg tablet 12.5 mg PO BID triamcinolone acetonide 0.1 % cream 1 appl topical BID-TID lisinopril 10 mg tablet 10 mg PO DAILY hydrochlorothiazide 25 mg tablet 25 mg PO DAILY EpiCeram Emulsion, Extended Release 1 appl topical DAILY Vasculera 630 mg tablet 1 tab PO DAILY Discontinued acetaminophen 325 mg Tablet 650 mg PO Q4H PRN (Reason: Pain) Discharge Orders: Discharge Order (Routine); Ordered 06/27/22 Ordered By: Ricardo Keyes Diet: Regular diet Activity on Discharge: Use cane or walker Stand Alone Forms: Patient Portal Discharge page Care Plan Goals: Restore function of joint Health Concerns: none Plan of Treatment: Physical Therapy Pain management DVT prophylaxis Assessment: Physical Therapy for Total knee arthroplasty: WBAT, gait training, ROM 0-12, quad strength * Limit stair climbing * No showering, no tub bath-keep dressing clean, dry and intact * No driving x6 weeks * Continue Aspirin twice a day x 6 weeks * Follow up with [facility] [place] [facility]: * --you will also have your first out patient PT aris on the day of your post op appt-so please plan on being in the office that day for an extended period of time.
--- NOTE | 2022-06-27 08:19 | P.F2F_ITS ---
Service Date Service Date: 06/27/22 Encounter Date of encounter: 06/27/22 Reasons for Services Signs and symptoms assessed: left knee pain, weakness and difficulty with ambulation. Reason for physical therapy: home safety and mobility, therapeutic exercises, restore joint function, gait/transfer training, ADL training and energy conservation Reason for occupational therapy: home safety and mobility, therapeutic exercises, restore joint function, gait/transfer training, ADL training and energy conservation MD Overseeing Care: Moy Gandhi Homebound: Leaving the home is medically contraindicated at this time without the asist of a device and/or another person due th the listed conditions above and below. Reason homebound: unsteady gait / fall risk, pain with ambulation, pain with transfers, poor balance / fall risk and unable to drive Homebound supporting statement: Pt. is considered home bound due to recent surgery. Unable to drive, poor balance, poor gait mechanics. Certification: Based on the above findings, I certify that this patient is confined to the home and needs intermittent correction care, physical therapy and/or speech therapy, or continues to need occupational therapy. The patient is under my care, and I have initiated the establishment of the plan of care. The patient will be followed by a physician who will periodically review the plan of care.
[2022-06-27] MEDS: Aspirin 325 MG TABLET PO (08:40)
[2022-06-27] MEDS: Multivitamin TABLET 1 TAB PO (08:41)
[2022-06-27] MEDS: Docusate Sodium 100 MG CAPSULE PO (08:41)
[2022-06-27] MEDS: Celecoxib 200 MG CAPSULE PO (08:41)
[2022-06-27] MEDS: oxyCODONE HCl ER 10 MG TAB.ER.12H PO (08:41)
[2022-06-27] MEDS: Dorzolamide HCl 2 % Ophth Sol 10 ML DRPBTL 1 DROP EYE-BOTH (08:43)
--- NOTE | 2022-06-27 08:44 | MHC.CM.PN ---
Patient has been medically cleared for discharge today; discharged Home with [facility]. No 2nd IMM required.
[2022-06-27] MEDS: 0.9 % Sodium Chloride Flush 3 ML SYRINGE IVFLUSH (08:48)
[2022-06-27 09:05] VITALS: BP 90/55; PULSE 98; O2SAT 96
[2022-06-27 11:13] VITALS: BP 108/54; PULSE 98; RESP 16; TEMP 36.5; O2SAT 97
== END 2022-06-27 12:43 | disposition home health service (06) | DRG 470 ==
LOC: HO.SSSA 07:12 → HO.S3 12:00
PROVIDERS: Internal Medicine; Physician Assistant; Admitting Provider Orthopaedic Surgery; PCP Internal Medicine; Visit Provider Orthopaedic Surgery
PROC: 0SRD0J9 Replacement of Left Knee Joint with Synthetic Substitute, Cemented, Open Approach (ICD-10-PCS; CPT 27447; principal; 2022-06-25 08:30)
DX: M17.12 Unilateral primary osteoarthritis, left knee (principal); I10 Essential (primary) hypertension; E78.5 Hyperlipidemia, unspecified; E66.9 Obesity, unspecified; Z71.3 Dietary counseling and surveillance; Z68.34 Body mass index [BMI] 34.0-34.9, adult; I95.81 Postprocedural hypotension; Z20.822 Contact with and (suspected) exposure to COVID-19; Z79.899 Other long term (current) drug therapy
CPT/HCPCS: 36415; 73560; 80048; 85014; 85018; 85025; 86850; 86900; 86901; 87635; 87640; 87641; 88305; 88311; 97110; 97116; 97162; 97530; C1713; C1776; J0690; J1170; J2250; J2370; J2795

== ENCOUNTER 2022-08-07 | Outpatient (REF) | payer MEDICARE, OTHER, SELFPAY ==
--- NOTE | ~2022-08-07 | XR_ITS ---
EXAMINATION: XR KNEES, STANDING AP XR KNEE, LEFT CLINICAL INFORMATION: Knee pain. Prior left knee arthroplasty. COMPARISON: Standing AP knees 01/30/2022, radiographs left knee 01/30/2022 and 06/25/2022. TECHNIQUE: Standing AP view of the knees is performed along with lateral and axial patella views of the left knee. FINDINGS: Right: There are prominent osteoarthritic changes greater medial compartment with joint narrowing and secondary genu varus. There are marginal osteophytes from the femoral condyle and tibial plateau. No visible erosive change or chondrocalcinosis. Normal bony mineralization. Scattered atherosclerotic calcifications vasculature. Left: There is hinged left knee arthroplasty. The hardware is intact. There is no destructive process or osteolysis. No fracture or dislocation. Scalloping and heterotopic bone at the medial proximal tibial metaphysis is similar to prior studies. There is large suprapatellar effusion. No lateralization or tilting patella. There are scattered atherosclerotic calcifications vasculature. XR/XR knee LT 2V IMPRESSION: Right: -Osteoarthritis, greatest medial compartment with secondary genu varus. Left: -Status post knee arthroplasty. Hardware intact. -Large suprapatellar effusion.
--- NOTE | ~2022-08-07 | XR_ITS ---
EXAMINATION: XR KNEES, STANDING AP XR KNEE, LEFT CLINICAL INFORMATION: Knee pain. Prior left knee arthroplasty. COMPARISON: Standing AP knees 01/30/2022, radiographs left knee 01/30/2022 and 06/25/2022. TECHNIQUE: Standing AP view of the knees is performed along with lateral and axial patella views of the left knee. FINDINGS: Right: There are prominent osteoarthritic changes greater medial compartment with joint narrowing and secondary genu varus. There are marginal osteophytes from the femoral condyle and tibial plateau. No visible erosive change or chondrocalcinosis. Normal bony mineralization. Scattered atherosclerotic calcifications vasculature. Left: There is hinged left knee arthroplasty. The hardware is intact. There is no destructive process or osteolysis. No fracture or dislocation. Scalloping and heterotopic bone at the medial proximal tibial metaphysis is similar to prior studies. There is large suprapatellar effusion. No lateralization or tilting patella. There are scattered atherosclerotic calcifications vasculature. XR/XR knee standing BI IMPRESSION: Right: -Osteoarthritis, greatest medial compartment with secondary genu varus. Left: -Status post knee arthroplasty. Hardware intact. -Large suprapatellar effusion.
== END 2022-08-07 00:01 | disposition home or self-care (01) ==
LOC: HO.HOSX
PROVIDERS: Visit Provider Physician Assistant
DX: M25.562 Pain in left knee (principal); Z96.652 Presence of left artificial knee joint
CPT/HCPCS: 73560; 73565

== ENCOUNTER 2022-08-20 08:00 | Outpatient (RCR) | payer MEDICARE, OTHER, SELFPAY ==
--- NOTE | 2022-07-10 14:43 | MHC.PT.EP ---
[facility] [place] Office [place] Office [place] Office [address] Aidee Raymundo [address] [phone] F: [phone] F: [phone] F: [phone] F: [phone] Physical Therapy Plan of Care Date of Evaluation: Date of Surgery: 06/25/22 Diagnosis: S/P LEFT TKA Assessment: 76 YO MALE REF TO PT S/P LEFT TKA ON 06/25/22. HE RESIDES W HIS SIGNIF OTHER IN A 1 LEVEL HOME AND IS CURRENTLY AMB W A W/WALKER . OBJECTIVE FINDINGS: LIMITED AROM Lt KNEE, TIGHT PSOAS MM CORBY AND DECR ANKLE DF CORBY; DECR STRENGTH IN PROX / LUMBOPELVIC AND Lt LE, POST-OP PAIN IN LEFT KNEE ,AND HEALING ANT Lt KNEE INCISION. FUNCTIONALLY, Pt IS AMB W A W/WALKER- HE HAS COMPENSATORY GAIT, MODIFIED STAIR MGMT, AND DECR BECKY TO ADLs REQ Lt KNEE FLEX. Pt IS A VERY GOOD PT CANDIDATE TO GUIDE HIM IN HIS POST-OP TKR COURSE, ADDRESSING THE ABOVE FINDINGS, PAIN MGMT, AND MAXIMIZING FUNCTIONAL INDEPENDENCE. Frequency and Duration: The patient will be seen 2 x WK x 8 WKS Short Term Goals: *Pt'S LEFT KNEE PAIN DECR TO 2-3/10 *Pt DEMON EFFICIENT GAIT MECH W W/WALKER ON LEVEL AND PROPER TECHN W STAIR MGMT-> LEAST RESTRICTIVE ASST DEV *Pt IMPROVE AROM Lt KNEE 0*-120* *IMPROVE CALF AND PSOAS FLEXIBILITY Longterm Goals: Pt INDEP W HEP PROGRESSION AND SELF-SX MGMT STRATEGIES IN 8 WKS Pt RESUME REG ADLs EVIDENT W IMPROVED LEFI SCORE BY 8-10 POINTS IN 8 WKS Pt INCR LEFT LE STRENGTH BY 1 GRADE IN 8 WKS Treatment Plan: Modalities to reduce pain, spasms and effusion. Manual therapy to restore motion and function. Therapeutic exercise to improve strength and flexibility. Neuromuscular re-education for posture and balance. Therapeutic activities to return to functional activities of daily living. Electronically signed by: Ashlyn Calloway,PT Please sign and return to therapist. Thank you for your referral.
--- NOTE | 2022-09-23 09:15 | MHC.PT.DC ---
[facility] [place] Office [place] Office [place] Office [address] Raymundo [address] [phone] F: [phone] F: [phone] F: [phone] F: [phone] Physical Therapy Discharge Report Diagnosis: S/P LEFT TKA Date of Surgery: 06/25/22 Date of Evaluation: 07/10/22 Date of Discharge: 09/23/22 Treatments to Date: 12 Cancellations to Date: 0 No Shows to Date: 0 Discharge Status: Achieved Goals Improved Function Independent with HEP Discharge Summary: At last scheduled visit pt was doing well. Was placed on 30 day hold to make sure no new issues arose. Pt has not reached out in >30 days and therefore to be d/c at this time. Electronically signed by: Yoko Quintero, PT, DPT, ATC Please sign and return to therapist. Thank you for your referral.
== END 2022-09-23 09:15 | disposition home or self-care (01) ==
LOC: HO.PTCHIC 08:00
PROVIDERS: Visit Provider Physician Assistant
DX: Z96.652 Presence of left artificial knee joint (principal)
CPT/HCPCS: 97110; 97116; 97140; 97162; 97530

== ENCOUNTER 2022-09-18 | Outpatient (REF) | payer MEDICARE, SELFPAY ==
--- NOTE | ~2022-09-18 | XR_ITS ---
EXAMINATION: XR knee standing BI, XR knee LT 2V CLINICAL INFORMATION: Reason for Exam M25.569 - Pain in unspecified knee COMPARISON: 08/07/2022 TECHNIQUE: Standing views of the bilateral knees and 2 views of the left knee XR/XR knee standing BI FINDINGS/IMPRESSION: * Left total knee arthroplasty in satisfactory alignment there is mild lucency along the posterior aspect of the tibial component seen on lateral view which may reflect hardware loosening. * Severe degenerative changes of the right knee joint.
--- NOTE | ~2022-09-18 | XR_ITS ---
EXAMINATION: XR knee standing BI, XR knee LT 2V CLINICAL INFORMATION: Reason for Exam M25.569 - Pain in unspecified knee COMPARISON: 08/07/2022 TECHNIQUE: Standing views of the bilateral knees and 2 views of the left knee XR/XR knee LT 2V FINDINGS/IMPRESSION: * Left total knee arthroplasty in satisfactory alignment there is mild lucency along the posterior aspect of the tibial component seen on lateral view which may reflect hardware loosening. * Severe degenerative changes of the right knee joint.
== END 2022-09-18 00:01 | disposition home or self-care (01) ==
LOC: HO.HOSX
PROVIDERS: Visit Provider Orthopaedic Surgery
DX: M25.562 Pain in left knee (principal)
CPT/HCPCS: 73560; 73565